=== PATIENT | female | born 1965 | race Two or more races ===

== ENCOUNTER 2023-12-15 12:26 | Emergency (ER) | payer OTHER ==
[~2023-12-15] VITALS: Ht 162.6 cm; Wt 102.1 kg
[2023-12-15] MEDS ORDERED: GLIPIZIDE XL5 MG PO (12:49)
[2023-12-15] MEDS ORDERED: LIPITOR20 MG PO (12:49)
[2023-12-15] MEDS ORDERED: ORPHENADRINE CITRATE 30 MG/ML AMPUL IM STA (15:02)
[2023-12-15] MEDS ORDERED: DEXAMETHASONE SODIUM PHOSPHATE 4 MG/ML VIAL IM STA (15:03)
[2023-12-15] MEDS ORDERED: ORPHENADRINE CITRATE 30 MG/ML AMPUL ONE (15:19)
[2023-12-15] MEDS ORDERED: DEXAMETHASONE SODIUM PHOSPHATE 4 MG/ML VIAL ONE (15:19)
== END 2023-12-15 19:40 | disposition home or self-care (01) ==
LOC: ER 12:28
DX: M79.18 Myalgia, other site (principal)